=== PATIENT | female | born 1955 | race Caucasian/White ===

== ENCOUNTER 2019-08-22 01:37 | Inpatient (IN) ==
--- NOTE | 2019-08-15 14:34 | EKG Report ---
Test Performed on : 08/15/2019 2:27:47 PM Test Reason : PAT Blood Pressure : / mmHG Vent. Rate : 066 BPM Atrial Rate : 066 BPM P-R Int : 146 ms QRS Dur : 080 ms QT Int : 394 ms P-R-T Axes : 064 001 085 degrees QTc Int : 413 ms Normal sinus rhythm. with sinus arrhythmia. T wave abnormality, consider lateral ischemia Abnormal ECG No previous ECGs available Confirmed by Dragan CORTEZ, P.J.M ([id number]) on 08/15/2019 3:14:12 PM
[2019-08-15 14:57] LABS: URINE SOURCE CLEAN CATCH
[2019-08-15 15:04] LABS: BASO# 0.02 X1000 (0.0-0.2); BASO% 0.3 % (0.0-0.8); EOS# 0.23 X1000 (0.0-0.7); EOS% 3.7 % (0.0-10.0); HEMATOCRIT 32.8 % (37.0-47.0); HEMOGLOBIN 9.7 g/dL (12.0-16.0); LYMPH# 1.24 X1000 (1.2-3.4); MCHC 29.6 g/dL (33-37); MCV 94.5 FL (81-99); MONO# 0.79 X1000 (0.11-0.59); MONO% 12.7 % (1.7-9.3); MPV 11.4 FL (7.4-10.4); NEUT# 3.93 X1000 (1.4-6.5); NEUT% 63.3 % (42.2-75.2); PLT 241 X1000 (130-400); RBC 3.47 XMIL (4.2-5.4); RDW 14.9 % (11.5-14.5); WBC 6.21 X1000 (4.8-10.8)
[2019-08-15 15:08] LABS: INR 1.04; PROTIME 13.7 Seconds (11.0-16.0)
[2019-08-15 15:09] LABS: BILIRUBIN URINE NEGATIVE (NEGATIVE); BLOOD URINE NEGATIVE (NEGATIVE); COLOR YELLOW; GLUCOSE URINE NEGATIVE (NEGATIVE); KETONE URINE NEGATIVE (NEGATIVE); LEUKOCYTES URINE LARGE (NEGATIVE); NITRITE URINE NEGATIVE (NEGATIVE); PROTEIN URINE NEGATIVE (NEGATIVE); PTT 29.3 Seconds (22.3-41.8); SP GRAVITY URINE 1.018; TURBIDITY URINE CLEAR (CLEAR); UROBILINOGEN URINE NORMAL (NORMAL)
[2019-08-15 15:11] LABS: HEMOGLOBIN A1C 5.3 % (4.8-6.0)
[2019-08-15 15:14] LABS: UR EPITHELIAL CELLS <10 /HPF (<10); URINE BACTERIA NEGATIVE /HPF
[2019-08-15 15:25] LABS: URINE CASTS NONE SEEN; URINE CRYSTALS NONE SEEN; URINE YEAST NONE SEEN
[2019-08-15 15:36] LABS: CALCIUM 8.6 mg/dL (8.8-10.2); CREATININE 1.3 mg/dL (0.5-0.9); POTASSIUM 4.3 mmol/L (3.5-5.1)
[2019-08-22] MEDS ORDERED: REGLAN ONE (08:48)
[2019-08-22] MEDS ORDERED: PEPCID ONE (08:48)
[2019-08-22] MEDS ORDERED: COLACE ONE (08:48)
[2019-08-22] MEDS ORDERED: LR 1,000 ML ONE (08:49)
[2019-08-22] MEDS ORDERED: LYRICA ONE (08:49)
[2019-08-22] MEDS ORDERED: KEFZOL 1 GM/D5W 2 GM/100 ML IVPB ONE (08:49)
[2019-08-22] MEDS ORDERED: DIPRIVAN 1% ONE (10:16)
[2019-08-22] MEDS ORDERED: XYLOCAINE-MPF 2% ONE (10:17)
[2019-08-22] MEDS ORDERED: QUELICIN (DOSE) ONE (10:19)
[2019-08-22] MEDS ORDERED: SUFENTA ONE (10:23)
[2019-08-22] MEDS ORDERED: TORADOL ONE (10:53)
[2019-08-22] MEDS ORDERED: SODIUM CHLORIDE 0.9% ONE (10:53)
[2019-08-22] MEDS ORDERED: MARCAINE 0.25% PF ONE (10:53)
[2019-08-22] MEDS ORDERED: CYKLOKAPRON 1,000 MG/NS 1,000 MG/100 ML IVPB ONE (10:53)
[2019-08-22] MEDS ORDERED: VANCOMYCIN ONE (10:53)
[2019-08-22] MEDS ORDERED: DURAMORPH ONE (10:53)
[2019-08-22] MEDS ORDERED: EXPAREL 1.3% ONE (10:54)
[2019-08-22 13:03] LABS: URINE SOURCE CATH
[2019-08-22 13:07] LABS: BILIRUBIN URINE NEGATIVE (NEGATIVE); BLOOD URINE NEGATIVE (NEGATIVE); COLOR STRAW; GLUCOSE URINE NEGATIVE (NEGATIVE); KETONE URINE NEGATIVE (NEGATIVE); LEUKOCYTES URINE NEGATIVE (NEGATIVE); NITRITE URINE NEGATIVE (NEGATIVE); PH URINE 5.5; PROTEIN URINE NEGATIVE (NEGATIVE); TURBIDITY URINE CLEAR (CLEAR); UR EPITHELIAL CELLS <10 /HPF (<10); URINE BACTERIA NEGATIVE /HPF; URINE RBC <10 /HPF (<10); URINE WBC <10 /HPF (<10); UROBILINOGEN URINE NORMAL (NORMAL)
[2019-08-22] MEDS ORDERED: DUONEB (A & A) INH ONE (13:32)
[2019-08-22] MEDS: DILAUDID ONE ×2 (13:53→13:57)
[2019-08-22] MEDS ORDERED: NS 1,000 ML ONE (14:02)
--- NOTE | 2019-08-22 14:12 | Diag Imaging Result Doc PS360 ---
EXAM: SHOULDER 1 VIEW LEFT HISTORY: Left total shoulder TECHNIQUE: Single view COMPARISON: None. FINDINGS: Orthopedic replacement of the left shoulder. Possible proximal humeral bone fragment. No separation at the acromioclavicular joint. Electronically signed by Elliot Singh 08/22/2019 2:09 PM
[2019-08-22] MEDS ORDERED: MILK OF MAGNESIA PO PRN (15:00)
[2019-08-22] MEDS ORDERED: OXY IR PO PRN (15:00)
[2019-08-22] MEDS ORDERED: MORPHINE IV PRN ×3 (15:00)
[2019-08-22] MEDS ORDERED: ZOFRAN PO PRN (15:00)
[2019-08-22] MEDS: NS 1,000 ML IV SCH (15:13)
[2019-08-22] MEDS: TYLENOL PO SCH ×2 (15:13→20:22)
[2019-08-22] MEDS: OXY IR PO PRN (17:00)
[2019-08-22] MEDS: KEFZOL 2 GM/D5W 2 GM/50 ML IVPB IV SCH (18:34)
[2019-08-23] MEDS: OXY IR PO PRN ×3 (00:34→08:31)
[2019-08-23] MEDS: KEFZOL 2 GM/D5W 2 GM/50 ML IVPB IV SCH (02:09)
[2019-08-23] MEDS: NS 1,000 ML IV SCH (02:09)
[2019-08-23] MEDS: TYLENOL PO SCH ×2 (02:10→08:32)
[2019-08-23 07:19] LABS: HEMATOCRIT 25.3 % (37.0-47.0); HEMOGLOBIN 7.5 g/dL (12.0-16.0)
[2019-08-23 07:36] VITALS: BP 128/42
[2019-08-23 07:39] LABS: CALCIUM 8.3 mg/dL (8.8-10.2); CREATININE 1.1 mg/dL (0.5-0.9); POTASSIUM 3.9 mmol/L (3.5-5.1)
--- NOTE | 2019-08-23 07:48 | OPERATIVE NOTE ---
PROCEDURE DATE: 08/22/2019 PREOPERATIVE DIAGNOSIS: Left displaced proximal humeral fracture. POSTOPERATIVE DIAGNOSIS: Left displaced proximal humeral fracture. PROCEDURE: Left reverse total shoulder arthroplasty, DePuy Delta Xtend size 10 cemented stem, a 38+ 3 humeral cup, a 38+ 8 mm lateralized eccentric Glenosphere, and a standard metaglene. SURGEON: Nirav Shelton M.D. OUTSOLE SCHEDULER: Ange Hale, who was necessary for proper retraction and manipulation of the extremity during the case. SECOND SENIOR MEDIA DIRECTOR: Mendel Camilo RN. ANESTHESIA: General. IV FLUIDS: 1500 mL of lactated Ringer's. ESTIMATED BLOOD LOSS: 100 mL. COMPLICATIONS: None. INDICATION: The patient is a pleasant, 64-year-old female, who is status post fall, sustaining an injury to her left shoulder on 07/16/2019. She has continued with pain and discomfort, and was referred for a second opinion, and given the chronic displacement of the fracture, recommendation to proceed with left reverse total shoulder arthroplasty was offered. Risks and benefits of surgery were explained, including the risks of anesthesia, , bleeding, infection, failure to relieve pain, postoperative stiffness, nerve injury, blood clots, and other imponderables. All questions were answered. The patient and family wished to proceed with surgery. DETAILS OF OPERATION: The patient was taken to the operating room and placed supine on the operating table. Once adequate anesthesia was obtained, the patient was placed in semi-Rivas beach-chair position. The left shoulder was subsequently prepped and draped in the usual sterile fashion. A standard deltopectoral incision was made with a skin knife. Hemostasis was obtained using electrocautery. The deltopectoral interval was then developed. Retractors were then placed. Elevation of the conjoint tendon was performed as well. The fracture site was then identified, and osteotome was used to elevate the proximal portion of the displaced femoral head and tuberosity fragments. They were then removed with sharp dissection. After this had been performed, attention was then turned to the glenoid. Circumferential dissection was performed with a deep knife. Guide was then placed in position. Guide pin was placed. Reaming was then conducted. Central hole was then dilated in standard fashion. The wound was copiously irrigated with antibiotic pulsatile lavage. A standard metaglene was then impacted. Two locking screws were placed and one nonlocking screw and had good purchase. The wound was copiously irrigated once again with copious irrigation. A 38+ 8 mm lateralized eccentric Glenosphere was then placed with eccentricity placed inferiorly. After that had been performed, sequential reaming was conducted in the intramedullary canal up to size 10 mm. After this had been performed, a trial stem was then placed to determine appropriate height. After confirming this position, copious irrigation was performed with pulsatile lavage while vancomycin was mixed in the cement on the back table. Cement was then impacted in the humeral shaft. The Delta Xtend humeral stem was then placed in position at approximately 15 degrees of retroversion. After cement had cured, the 38+ 3 humeral cup appeared to be the correct size. The wound was copiously irrigated. A 38+ 3 humeral cup was then placed and carried through range of motion. It had excellent stability and range of motion. The wound was copiously irrigated once again. 2-0 Vicryl was then used to repair the subcutaneous tissue, followed by a running 2-0 Prolene. Benzoin and Steri-Strips were applied. Adaptic, sterile 4 x 4s, ABD pad, and tape were applied to the left shoulder, followed by a shoulder immobilizer. All counts were correct. The patient tolerated the procedure well, and was transferred to the recovery room in stable condition. cc: Nirav Shelton MD
[2019-08-23] MEDS ORDERED: GLUCOPHAGE PO SCH (08:00)
[2019-08-23] MEDS ORDERED: LEXAPRO PO SCH (09:00)
[2019-08-23] MEDS ORDERED: DIOVAN PO SCH (09:00)
[2019-08-23] MEDS ORDERED: BRILINTA PO SCH (09:00)
[2019-08-23] MEDS ORDERED: PLETAL PO SCH (09:00)
[2019-08-23] MEDS ORDERED: PRILOSEC PO SCH (09:00)
[2019-08-23] MEDS ORDERED: IMDUR PO SCH (09:00)
[2019-08-23] MEDS ORDERED: LOPID PO SCH (09:00)
[2019-08-23] MEDS ORDERED: NEURONTIN PO SCH ×2 (09:00→21:00)
[2019-08-23] MEDS ORDERED: ACTOS PO SCH (09:00)
[2019-08-23] MEDS ORDERED: LASIX PO SCH (09:00)
[2019-08-23] MEDS ORDERED: NORVASC PO SCH (09:00)
--- NOTE | 2019-08-23 14:49 | ORTHOPAEDICS PROGRESS NOTE ---
DATE: 08/23/2019 SUBJECTIVE: Ms. Cowan is status post day 1 of a left reverse total shoulder arthroplasty. She is resting comfortably in bed at this time and states that she has had some pain in her shoulders last night, but otherwise denies any complaints. OBJECTIVE: Ms. Cowan is sitting up in her bed at this time and is awake, alert, and oriented. Her surgical dressing to her left shoulder is clean, dry, and intact with no surrounding redness. She has full sensation to her fingers and full range of motion of her hand and wrist. Her cap refill is less than 2 seconds.Vital Signs: Her most recent vital signs show a heart rate of 79 and respiratory rate of 20. She has been saturating 99% on room air. LAB WORK: Does show that her H H has dropped from 9.7 and 38.2 to 7.5 and 25.3. She has been asymptomatic from this. ASSESSMENT: Status post day 1 of a left reverse total shoulder arthroplasty. PLAN: Ms. Cowan will be going to an outpatient rehab facility in [facility]. This will be set up for her and she will call for the appointment today. She was given a prescription for Percocet to take for postoperative pain. Upon discharge, she will not be requiring any deep vein thrombosis prophylaxis. She will see us back in the office on 09/03/2019. She will call and make this appointment time. Dictated by ALFRED Park for Nirav Shelton MD cc: Nirav Shelton MD MTDDora
[2019-08-23] MEDS ORDERED: LIORESAL PO SCH (21:00)
[2019-08-23] MEDS ORDERED: ZEBETA PO SCH (21:00)
[2019-08-23] MEDS ORDERED: ZOCOR PO SCH (21:00)
[2019-08-23] MEDS ORDERED: DESYREL PO SCH (21:00)
== END 2019-08-23 11:54 | disposition home health service (06) | DRG 483 ==
LOC: SURHOLD 01:37 → 4N 14:27
PROVIDERS: ADMIT Orthopaedic Surgery Adult Reconstructive Orthopaedic Surgery; ATTEND Orthopaedic Surgery Adult Reconstructive Orthopaedic Surgery